=== PATIENT | female | born 1975 | race Caucasian/White ===

== ENCOUNTER 2019-06-29 00:09 | Emergency (ER) | payer BC, OTHER ==
[2019-06-29] MEDS ORDERED: FLUORESCEIN SODIUM 1 MG/WRAP ONE (00:57)
[2019-06-29] MEDS ORDERED: TETRACAINE HCL 0.5% 4ML OPTH ONE (00:57)
--- NOTE | 2019-06-29 01:41 | ER ---
Nurse's Notes [facility] Name: Nereida Benton Age: 44 yrs Sex: Female : 1975 Arrival Date: 06/29/2019 Time: 00:13 Bed 15 Private MD: Diagnosis: Corneal disorder due to contact lens;Keratoconjunctivitis Presentation: 06/29 00:20 Presenting complaint: Patient states: She is having eye pain 9/10 on a pain scale after removing her contact lens this evening. Pt states she has blurry vision this afternoon prior to the eye pain. Pt also states she had colds this past few days. Transition of care: patient was not received from another setting of care. Mechanism of Injury: No Mechanism of Injury. The patient denies any loss of vision. Onset of symptoms was June 29, 2019. Risk Assessment: Do you want to hurt yourself or someone else? Patient reports no desire to harm self or others. Initial Sepsis Screen: Does the patient meet any 2 criteria? No. Patient's initial sepsis screen is negative. Does the patient have a suspected source of infection? No. Patient's initial sepsis screen is negative. Care prior to arrival: None. 00:20 Method Of Arrival: Ambulatory 00:20 Acuity: KAITY 4 Triage Assessment: 01:00 General: Behavior is calm, cooperative, appropriate for age. 02:08 General: Appears. 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 - Social history:: Smoking status: Patient/guardian denies using tobacco. - Ebola Screening: : Patient negative for fever greater than or equal to 101.5 degrees Fahrenheit, and additional compatible Ebola Virus Disease symptoms Patient denies exposure to infectious person. Screenin:22 Abuse screen: Denies threats or abuse. Denies injuries from another. Nutritional screening: No deficits noted. Tuberculosis screening: No symptoms or risk factors identified. Fall Risk None identified. Assessment: 01:00 General: Appears in no apparent distress. Pain: Complains of pain in right eye and left eye Pain does not radiate. Pain currently is 8 out of 10 on a pain scale. Neuro: Level of Consciousness is awake, alert, obeys commands. Cardiovascular: Capillary refill < 3 seconds. Respiratory: Airway is patent Respiratory effort is even, unlabored, Respiratory pattern is regular, symmetrical. GI: Abdomen is flat, non-distended. : No signs and/or symptoms were reported regarding the genitourinary system. EENT: Eyes . Sclera/Cornea are reddened in both eyes. EENT: Eyes teary. Derm: Derm: Skin is intact, is healthy with good turgor, Skin is pink, warm \T\ dry. normal. Musculoskeletal: Circulation, motion, and sensation intact. 02:10 Reassessment: Patient appears in no apparent distress at this time. No changes from previously documented assessment. Patient and/or family updated on plan of care and expected duration. Pain level reassessed. Patient is alert, oriented x 3, equal unlabored respirations, skin warm/dry/pink. Vital Signs: 00:23 BP 169 / 113; Pulse 101; Resp 18; Temp 98.2; Pulse Ox 99% on R/A; 02:00 BP 141 / 81; Pulse 68; Resp 18; Pulse Ox 100% on R/A; Visual Acuity: 02:12 Left Eye Normal; Right Eye Normal; Without Lenses; ED Course: 00:13 Patient arrived in ED. ds1 00:14 Bora Whitney MD is Attending Physician. gs 00:14 Cordelia Pace is Primary Nurse. 00:22 Triage completed. 00:22 Arm band placed on right wrist. 00:23 Patient has correct armband on for positive identification. Bed in low position. Call light in reach. Side rails up X 1. Pulse ox on. NIBP on. 01:25 Assist provider with eye exam of both eyes. using fluorescein stain, Performed by Bora Whitney MD Patient tolerated well. 02:11 No provider procedures requiring assistance completed. Patient did not have IV access during this emergency room visit. Administered Medications: 01:20 Drug: Tetracaine Drops 0.5 % 1 drops {Note: By Dr Whitney.} Route: Ophthalmic; Site: both eyes; 02:13 Follow up: Response: No adverse reaction 02:00 Drug: ERYTHromycin Ointment 1 application Route: Ophthalmic; Site: both eyes; 02:13 Follow up: Response: No adverse reaction Outcome: 01:40 Discharge ordered by . 02:11 Discharged to home ambulatory, with family. 02:11 Condition: good 02:11 Discharge instructions given to patient, family, Instructed on discharge instructions, follow up and referral plans. medication usage, POC COnjunctivitis Demonstrated understanding of instructions, follow-up care, medications, POC Prescriptions given X 1. 02:14 Patient left the ED. Signatures: Veronica Benitez ds1 Cordelia Pace Bora Whitney MD MD
--- NOTE | 2019-06-29 01:42 | EDPHYS ---
Physician Documentation [facility] Name: Nereida Benton Age: 44 yrs Sex: Female : 1975 Arrival Date: 06/29/2019 Time: 00:13 Bed 15 Private MD: ED Physician Bora Whitney HPI: 06/29 01:33 This 44 yrs old Female presents to ER via Ambulatory with complaints of Eye gs Pain. 01:33 The patient is experiencing pain, redness, to both eyes, caused by contact lens. Onset: gs The symptoms/episode began/occurred acutely, today. Duration: the symptoms are continuous. Aggravated by blinking, closing eye, opening eye, rubbing. Associated signs and symptoms: Pertinent negatives: chills, fever. Patient wears glasses, wears soft contacts. Severity of symptoms: At their worst the symptoms were severe in the emergency department the symptoms are unchanged. The patient has not experienced similar symptoms in the past. 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 N/A - Historical: - Allergies: 00:23 No Known Allergies; - Home Meds: 00:23 hydrochlorothiazide 12.5 mg Oral cap 1 cap once daily [Active]; - PMHx: 00:23 Hypertension; - Immunization history:: Adult Immunizations up to date. - Social history:: Smoking status: Patient/guardian denies using tobacco. - Ebola Screening: : Patient negative for fever greater than or equal to 101.5 degrees Fahrenheit, and additional compatible Ebola Virus Disease symptoms Patient denies exposure to infectious person. ROS: 01:33 All other systems are negative. gs Exam: 01:33 Head/Face: Normocephalic, atraumatic. gs 01:33 Cardiovascular: Regular rate and rhythm with a normal S1 and S2. No gallops, murmurs, or rubs. Normal PMI, no JVD. No pulse deficits. Respiratory: Lungs have equal breath sounds bilaterally, clear to auscultation and percussion. No rales, rhonchi or wheezes noted. No increased work of breathing, no retractions or nasal flaring. Back: No spinal tenderness. No costovertebral tenderness. Full range of motion. Skin: Warm, dry with normal turgor. Normal color with no rashes, no lesions, and no evidence of cellulitis. MS/ Extremity: Pulses equal, no cyanosis. Neurovascular intact. Full, normal range of motion. Neuro: Awake and alert, GCS 15, oriented to person, place, time, and situation. Cranial nerves II-XII grossly intact. Motor strength 5/5 in all extremities. Sensory grossly intact. Cerebellar exam normal. Normal gait. 01:33 Constitutional: The patient appears alert, awake, uncomfortable. 01:33 Eyes: Periorbital structures: appear normal, Pupils: no acute changes, normal size, equal, round, and reactive to light and accomodation, Extraocular movements: intact throughout, Conjunctiva: injected, Corneas: abrasion, that is small, on the right, a fluorescein strip employed to appreciate the findings, Anterior chamber: normal. Vital Signs: 00:23 BP 169 / 113; Pulse 101; Resp 18; Temp 98.2; Pulse Ox 99% on R/A; 02:00 BP 141 / 81; Pulse 68; Resp 18; Pulse Ox 100% on R/A; Visual Acuity: 02:12 Left Eye Normal; Right Eye Normal; Without Lenses; MDM: 00:29 Patient medically screened. 01:33 Differential diagnosis: Corneal abrasion of Foreign body in Acute iritis of. Data reviewed: vital signs, nurses notes. Counseling: I had a detailed discussion with the patient and/or guardian regarding: the historical points, exam findings, and any diagnostic results supporting the discharge/admit diagnosis, the need for outpatient follow up, an opthalmologist. Response to treatment: the patient's symptoms have markedly improved after treatment, and as a result, I will discharge patient. 06/29 00:38 Order name: Eye Tray; Complete Time: 00:57 06/29 00:38 Order name: Fluoresene Opth strip; Complete Time: 00:57 Administered Medications: 01:20 Drug: Tetracaine Drops 0.5 % 1 drops {Note: By Dr Whitney.} Route: Ophthalmic; Site: both eyes; 02:13 Follow up: Response: No adverse reaction 02:00 Drug: ERYTHromycin Ointment 1 application Route: Ophthalmic; Site: both eyes; 02:13 Follow up: Response: No adverse reaction Disposition: 06/29/19 01:40 Discharged to Home. Impression: Corneal disorder due to contact lens, Keratoconjunctivitis. - Condition is Stable. - Discharge Instructions: Bacterial Conjunctivitis, [id number]. - Prescriptions for Ocuflox 0.3 % Ophthalmic Drops - instill 2 drop by OPHTHALMIC route every 4 hours for 5 days; 5 milliliter. - Medication Reconciliation Form, Thank You Letter, Antibiotic Education, Prescription Opioid Use form. - Follow up: Private Physician; When: 1 - 2 days; Reason: Re-evaluation by your physician. Signatures: Cordelia Pace Gregory, MD MD gs Corrections: (The following items were deleted from the chart) 02:14 01:40 06/29/2019 01:40 Discharged to Home. Impression: Corneal disorder due to contact wh lens; Keratoconjunctivitis. Condition is Stable. Forms are Medication Reconciliation Form, Thank You Letter, Antibiotic Education, Prescription Opioid Use. Follow up: Private Physician; When: 1 - 2 days; Reason: Re-evaluation by your physician. gs
[2019-06-29] MEDS ORDERED: ERYTHROMYCIN 1 APPL/1 GM TUBE ONE (01:56)
[2019-06-29 05:41] VITALS: TEMP 98.2
[2019-06-29 05:43] VITALS: BP 141/81; O2SAT 100
== END 2019-06-29 02:14 | disposition home or self-care (01) ==
LOC: ER 00:09
DX: H16.203 Unspecified keratoconjunctivitis, bilateral (principal); H18.823 Corneal disorder due to contact lens, bilateral
CPT/HCPCS: 99284